=== PATIENT | female | born 1935 | race Caucasian/White ===

== ENCOUNTER 2021-11-13 13:43 | Outpatient (CLI) | payer MEDICARE, BC | END 2021-11-13 13:44 | disposition home or self-care (01) | LOC: CSHRAD 13:43 | PROVIDERS: ATTEND Internal Medicine Rheumatology | DX: M54.6 Pain in thoracic spine (principal); M47.814 Spondylosis without myelopathy or radiculopathy, thoracic region | CPT/HCPCS: 72072 ==